=== PATIENT | female | born 1975 | race Caucasian/White ===

== ENCOUNTER 2017-03-30 13:05 | Emergency (ER) | payer BC ==
[~2017-03-30] VITALS: Ht 165.1 cm; Wt 56.7 kg
[~2017-03-30 13:05] MED LIST: ABILIFY 2 MG2 MG PO; AMITRIPTYLINE H10 M1; AZITHROMYCIN 2250 MG PO; BACTRIM DS TAB1 EACH PO; CELEXA 20 MG TA20 MG PO; CLORAZEPATE DI7.5 M1; DEPAKOTE500 MG PO; LAMICTAL XR100 MG PO; OMEPRAZOLE 20 M20 MG; PERCOCET 5-3251 EACH PO; PROPRANOLOL 1010 MG PO; XANAX 0.5 MG0.5 M1 PO; XANAX XR1 MG PO
[2017-03-30] MEDS ORDERED: GLUCOPHAGE XR500 MG PO (13:28)
[2017-03-30] MEDS ORDERED: NOVOLOG100 UNIT/M SUBQ (13:29)
[2017-03-30 14:04] LABS: ABG SAMPLE TYPE VENOUS; HCO3 20.6 mmol/L (22.0-26.0); O2(CT) 17.3 mL/dL (15.0-23.0); O2Hb VENOUS 83.9 (65.0-85.0); PCO2 VENOUS 36.5 mmHg (41.0-51.0); PO2 VENOUS 59.7 mmHg (35.0-45.0); sO2 VENOUS 90.4 % (65.0-85.0); tCO2 21.7 mmol/L (24.0-30.0)
[2017-03-30 14:05] LABS: LACTATE 4.33 mmol/L (0.5-2.0); STICK SITE LINE
[2017-03-30 14:15] LABS: ABSOLUTE NEUTROPHILS 3.6 thou/uL (1.4-8.2); BASOPHILS 0.3 % (0.0-2.0); EOSINOPHILS 1.9 % (0.0-3.0); HEMATOCRIT 40.5 % (37.0-47.0); HEMOGLOBIN 13.7 gm/dL (12.0-15.0); LYMPHOCYTES 39.7 % (24.0-44.0); MCH 32.1 pg (26.0-34.0); MCHC 33.8 g/dL (28.0-37.0); MONOCYTES 4.4 % (1.0-8.0); PLATELET COUNT 280 thou/uL (150-400); POLYS 53.7 % (36.0-66.0); RBC 4.27 mil/uL (4.20-5.00); RDW 15.2 % (10.5-14.5); WBC 6.7 thou/uL (4.0-11.0)
[2017-03-30 14:16] LABS: MANUAL DIFF NO
[2017-03-30 14:36] LABS: CALCIUM 8.8 mg/dL (8.5-10.1); CREATININE 0.6 mg/dL (0.6-1.0); POTASSIUM 4.3 mmol/L (3.5-5.1)
[2017-03-30 14:42] LABS: ALBUMIN 3.6 g/dL (3.4-5.0); TOTAL BILIRUBIN 0.2 mg/dL (<0.1-1.0); TOTAL PROTEIN 6.7 g/dL (6.4-8.2)
[2017-03-30 15:30] LABS: URINE BILIRUBIN NEGATIVE (Negative); URINE BLOOD NEGATIVE (Negative); URINE COLOR YELLOW; URINE GLUCOSE-RANDOM* 3+ (Negative); URINE KETONES 1+ (Negative); URINE LEUKOCYTES-REFLEX NEGATIVE (Negative); URINE PROTEIN (DIPSTICK) NEGATIVE (Negative); URINE UROBILINOGEN 0.2 E.U./dl (0.2-1.0)
[2017-03-30] MEDS ORDERED: SENOKOT-S1 TA1 PO (16:00)
[2017-03-30 16:10] VITALS: BP 121/64
[2017-03-30] MEDS ORDERED: ATIVAN1 MG PO (21:02)
== END 2017-03-30 16:10 | disposition home or self-care (01) ==
LOC: ER 13:05
PROVIDERS: Physician Assistant
DX: F10.10 Alcohol abuse, uncomplicated (principal); K59.00 Constipation, unspecified; E10.65 Type 1 diabetes mellitus with hyperglycemia; Z98.890 Other specified postprocedural states; F32.9 Major depressive disorder, single episode, unspecified; I10 Essential (primary) hypertension; G89.29 Other chronic pain; Z88.5 Allergy status to narcotic agent; Z88.6 Allergy status to analgesic agent; Z88.8 Allergy status to other drugs, medicaments and biological substances; F17.200 Nicotine dependence, unspecified, uncomplicated; F12.10 Cannabis abuse, uncomplicated; Z71.6 Tobacco abuse counseling

== ENCOUNTER 2017-03-30 20:44 | Inpatient (IN) | payer BC ==
[~2017-03-30] VITALS: Ht 165.1 cm; Wt 64.5 kg
[~2017-03-30 20:44] MED LIST changes: +GLUCOPHAGE XR500 MG PO; +NOVOLOG100 UNIT/M SUBQ; +SENOKOT-S1 TA1 PO
[2017-03-30 20:45] VITALS: BP 158/96
[2017-03-30 21:00] LABS: ABSOLUTE NEUTROPHILS 4.2 thou/uL (1.4-8.2); BASOPHILS 1.1 % (0.0-2.0); EOSINOPHILS 1.3 % (0.0-3.0); HEMATOCRIT 40.1 % (37.0-47.0); HEMOGLOBIN 13.7 gm/dL (12.0-15.0); LYMPHOCYTES 35.6 % (24.0-44.0); MCH 31.8 pg (26.0-34.0); MCHC 34.2 g/dL (28.0-37.0); MCV 93.2 fL (80.0-100.0); MONOCYTES 7.7 % (1.0-8.0); PLATELET COUNT 286 thou/uL (150-400); POLYS 54.3 % (36.0-66.0); WBC 7.7 thou/uL (4.0-11.0)
[2017-03-30 21:01] LABS: MANUAL DIFF NO
[2017-03-30] MEDS ORDERED: ATIVAN1 MG PO (21:02)
[2017-03-30 21:08] LABS: ANION GAP 13 mmol/L (7-16); BUN 6 mg/dL (7-18); CHLORIDE 106 mmol/L (98-107); CO2 18 mmol/L (21-32); CREATININE 0.5 mg/dL (0.6-1.0); GLUCOSE 253 mg/dL (74-106); POTASSIUM 3.5 mmol/L (3.5-5.1); SODIUM 137 mmol/L (136-145)
[2017-03-30 21:25] LABS: ALBUMIN 3.3 g/dL (3.4-5.0); ALKALINE PHOSPHATASE 68 U/L (46-116); DIRECT BILIRUBIN < 0.1 mg/dL (<0.1-0.3); SGOT 30 U/L (15-37); SGPT 31 U/L (30-65); TOTAL BILIRUBIN 0.4 mg/dL (<0.1-1.0); TOTAL PROTEIN 6.1 g/dL (6.4-8.2)
[2017-03-30 22:31] VITALS: BP 128/78
[2017-03-30 22:53] VITALS: BP 143/90
[2017-03-31 02:42] LABS: ABSOLUTE NEUTROPHILS 4.8 thou/uL (1.4-8.2); BASOPHILS 1.1 % (0.0-2.0); HEMATOCRIT 38.1 % (37.0-47.0); HEMOGLOBIN 12.9 gm/dL (12.0-15.0); MCH 31.8 pg (26.0-34.0); MCHC 33.8 g/dL (28.0-37.0); MCV 94.2 fL (80.0-100.0); MONOCYTES 6.6 % (1.0-8.0); PLATELET COUNT 259 thou/uL (150-400); POLYS 58.3 % (36.0-66.0); RBC 4.05 mil/uL (4.20-5.00); RDW 15.7 % (10.5-14.5); WBC 8.2 thou/uL (4.0-11.0)
[2017-03-31 02:43] LABS: MANUAL DIFF NO
[2017-03-31 02:47] LABS: CALCIUM 8.5 mg/dL (8.5-10.1); CREATININE 0.6 mg/dL (0.6-1.0); POTASSIUM 4.4 mmol/L (3.5-5.1)
[2017-03-31 02:52] LABS: ALBUMIN 3.3 g/dL (3.4-5.0); MAGNESIUM 1.4 mg/dL (1.8-2.4); PHOSPHORUS 3.7 mg/dL (2.5-4.9); TOTAL BILIRUBIN 0.5 mg/dL (<0.1-1.0)
[2017-03-31 03:06] LABS: FOLIC ACID 6.6 ng/mL (8.6-58.9)
[2017-03-31 04:45] VITALS: BP 144/79
[2017-03-31 07:31] VITALS: BP 138/86
[2017-03-31 11:16] VITALS: BP 130/93
[2017-03-31 12:08] LABS: FREE T4 1.39 ng/dL (0.82-1.77)
[2017-03-31 15:21] VITALS: BP 130/93
[2017-03-31 15:23] VITALS: BP 130/93
[2017-04-01 02:11] LABS: GLYCOHEMOGLOBIN (HGB A1C) 10.7 % (4.8-5.6)
== END 2017-03-31 16:04 | disposition home or self-care (01) | DRG 897 ==
LOC: ER 20:44 → EROBS 22:03 → 4W 22:03
PROVIDERS: Emergency Medicine; Nurse Practitioner Family
DX: F10.239 Alcohol dependence with withdrawal, unspecified (principal); E87.2 Acidosis; E11.65 Type 2 diabetes mellitus with hyperglycemia; F32.9 Major depressive disorder, single episode, unspecified; I10 Essential (primary) hypertension; G89.29 Other chronic pain; F17.210 Nicotine dependence, cigarettes, uncomplicated; K59.00 Constipation, unspecified; E83.42 Hypomagnesemia; F12.90 Cannabis use, unspecified, uncomplicated; R10.12 Left upper quadrant pain; Y90.0 Blood alcohol level of less than 20 mg/100 ml; Z79.4 Long term (current) use of insulin; Z88.6 Allergy status to analgesic agent; Z88.8 Allergy status to other drugs, medicaments and biological substances; Z79.899 Other long term (current) drug therapy
CPT/HCPCS: 10045